=== PATIENT | female | born 1950 | race Caucasian/White ===

== ENCOUNTER 2025-02-03 20:43 | Emergency (ER) | payer MEDICARE, SELFPAY ==
[2025-02-03 20:50] VITALS: BP 188/66; PULSE 63; RESP 16; TEMP 36.6; O2SAT 97; BMI 25.0
--- NOTE | 2025-02-03 23:52 | CTR_ITS ---
PROCEDURE INFORMATION: Exam: CT Chest Without Contrast; Diagnostic Exam date and time: 02/04/2025 12:03 AM Age: 74 years old Clinical indication: Injury or trauma; Fall; Generalized; Blunt trauma (contusions or hematomas); Prior surgery; Surgery date: 6+ months; Surgery type: Open heart. Patient unable to specify procedure. Patient slipped on wet ground while walking dog and fell backwards onto ground. C/O upper back pain with RT scapular and RT posterior rib pain. ; Additional info: Fall, left scapula/rib pain TECHNIQUE: Imaging protocol: Diagnostic computed tomography of the chest without contrast. Radiation optimization: All CT scans at this facility use at least one of these dose optimization techniques: automated exposure control; mA and/or kV adjustment per patient size (includes targeted exams where dose is matched to clinical indication); or iterative reconstruction. COMPARISON: CR XR chest 1V [id number] 07/07/2018 7:04 AM RADIATION DOSE METRICS: Total DLP (mGy-cm): 1577.82 FINDINGS: Lungs: Mild bilateral lung scarring/atelectasis. No focal infiltrate or consolidation. Pleural spaces: Unremarkable. No pneumothorax. No pleural effusion. Heart: Heart normal in size. Severe calcified coronary artery atherosclerosis. No pericardial effusion. Lymph nodes: No mediastinal or hilar adenopathy. No axillary adenopathy. Vasculature: Moderate to severe atherosclerotic calcification of the thoracic aorta. Negative for aneurysm. Bones/joints: Acute compression fracture of the T3 vertebral body with moderate loss of central and anterior body height. Negative for retropulsion. Age-indeterminate compression fracture of the T5 vertebral body with moderate to severe loss of central and anterior body height. Exaggeration of the normal thoracic kyphosis. Prior sternotomy. Soft tissues: Unremarkable. PROCEDURE INFORMATION: Exam: CT Abdomen And Pelvis Without Contrast Exam date and time: 02/04/2025 12:03 AM Age: 74 years old Clinical indication: Injury or trauma; Fall; Generalized; Blunt trauma (contusions or hematomas); Prior surgery; Surgery date: 6+ months; Surgery type: Open heart. Patient unable to specify procedure. Patient slipped on wet ground while walking dog and fell backwards onto ground. C/O upper back pain with RT scapular and RT posterior rib pain. ; Additional info: Fall, left scapula/rib pain TECHNIQUE: Imaging protocol: Computed tomography of the abdomen and pelvis without contrast. Radiation optimization: All CT scans at this facility use at least one of these dose optimization techniques: automated exposure control; mA and/or kV adjustment per patient size (includes targeted exams where dose is matched to clinical indication); or iterative reconstruction. COMPARISON: CR XR chest 1V [id number] 07/07/2018 7:04 AM RADIATION DOSE METRICS: Total DLP (mGy-cm): 1577.82 FINDINGS: Liver: Normal. No mass. Gallbladder and biliary ducts: Normal. No calcified stones. No ductal dilation. Pancreas: Normal. No ductal dilation. Spleen: Normal. No splenomegaly. Adrenal glands: Normal. No mass. Kidneys and ureters: Bilateral renal cortical cysts, larger on right measuring 5.6 cm. Bilateral kidneys otherwise negative. Negative for hydronephrosis or urolithiasis. Stomach and bowel: Small and large bowel normal in caliber without identified wall thickening. Moderate sigmoid diverticulosis without findings of diverticulitis. Nonobstructive bowel gas pattern. Appendix: No evidence of appendicitis. Intraperitoneal space: Unremarkable. No free air. No significant fluid collection. Vasculature: Severe atherosclerotic calcification of the aorta and major branch vessels without aneurysm. Lymph nodes: Unremarkable. No enlarged lymph nodes. Urinary bladder: Unremarkable as visualized. Reproductive: Unremarkable as visualized. Bones/joints: Moderate lumbosacral spondylosis. Soft tissues: Unremarkable. CT/[place] [id number] IMPRESSION: 1. Acute compression fracture of the T3 vertebral body with moderate loss of central and anterior body height. Negative for retropulsion. 2. Age-indeterminate compression fracture of the T5 vertebral body with moderate to severe loss of central and anterior body height. Subjectively favored to be old. 3. No other acute pathology identified within the chest. IMPRESSION: No identified acute pathology within the abdomen or pelvis.
[2025-02-04 00:10] VITALS: RESP 17; O2SAT 96
[2025-02-04] MEDS: morphine 4 mg/mL SDV 1 mL 8 MG IM (00:10)
[2025-02-04] MEDS: ondansetron hcl ODT 4 mg Tab PO (02:26)
[2025-02-04 02:35] VITALS: BP 147/88; PULSE 81; RESP 18; O2SAT 96
--- NOTE | 2025-02-04 06:27 | W.ED.FALL ---
HPI - Fall General: Chief Complaint: Fall Stated Complaint: fall back, SOB Time Seen by Provider: 02/03/25 23:38 History of Present Illness: Patient presents after a fall while walking the dog, landing on the left scapular area. Reports pain localized to the left scapula, off to the side of the spine, and some difficulty breathing due to pain. Denies feeling like any ribs are broken at this time. No current nausea or vomiting. There is some uncertainty about whether the patient hit their head during the fall, as the patient initially denies but a caregiver suggests they may have. No mention of loss of consciousness. The patient describes the fall as occurring after slipping on a muddy rug while handling the dog. Related Data Previous Rx's ?Medication ?Instructions ?Recorded lisinopril 2.5 mg tablet 2.5 mg PO DAILY #90 tabs 12/06/19 metoprolol tartrate 25 mg tablet 12.5 mg (1/2 x 25 mg) PO BID #180 12/06/19 tabs rosuvastatin 20 mg tablet 20 mg PO DAILY #90 tabs 12/06/19 oxycodone-acetaminophen 5 mg-325 1 tab PO TID PRN pain #20 tabs 02/04/25 mg tablet (Percocet) Allergies Allergy/AdvReac Type Severity Reaction Status Date / Time Penicillins Allergy ALGY-Hives Verified 02/03/25 20:56 Physical Exam Const: COMMON NORMALS: no acute distress, patient oriented x3 and alert HENMT: COMMON NORMALS: normocephalic and atraumatic HEAD & SCALP: normocephalic and atraumatic Eye: COMMON NORMALS: Equal, round and reactive pupils present, EOMs intact bilaterally and no scleral icterus PUPIL: Yes Equal, round and reactive pupils present Resp: COMMON NORMALS: normal respiratory effort and No retractions Cardio: COMMON NORMALS: regular rate, regular rhythm and No murmurs present (Cardio) RATE: regular rate RHYTHM: regular rhythm GI: COMMON NORMALS: Normal to inspection, nondistended, normoactive bowel sounds present, Soft to palpation and non-tender PALPATION: Yes Soft to palpation Back/Pelvis: OTHER: Focal tenderness with palpation of the left scapula. No midline tenderness of the spine. Neuro: COMMON NORMALS: patient oriented x3 SENSORIUM/ORIENTATION: Yes alert Skin: COMMON NORMALS: no rashes or lesions noted GENERAL SKIN EXAM: no rashes or lesions noted Course Vital Signs: Vital signs: Vital Signs Temperature 97.8 F 02/03/25 20:50 Pulse Rate 81 02/04/25 02:35 Respiratory Rate 18 02/04/25 02:35 Blood Pressure 147/88 02/04/25 02:35 Pulse Oximetry 96 02/04/25 02:35 Oxygen Delivery Me thod Room Air 02/03/25 20:50 MDM - Fall Medical Decision Making In summary, patient is a generally well-appearing 74-year-old female seen for left scapular pain after falling. CT scan of the chest shows several chronic compression fractures. Radiology notes that T3 fracture may be acute. She does not have any point tenderness to with palpation of T3 nor any midline pain nor was her mechanism such that she would cause a compressive force on the spine thus I do not feel she would benefit from spinal bracing. She will be given a course of pain medication for what I suspect to be scapular contusion. She and family showed understanding and agrees to the plan and she will be discharged in stable condition Lab Data Radiology Impressions Chest/Abdomen/Pelvis CT 02/03/25 23:52 IMPRESSION: 1. Acute compression fracture of the T3 vertebral body with moderate loss of central and anterior body height. Negative for retropulsion. 2. Age-indeterminate compression fracture of the T5 vertebral body with moderate to severe loss of central and anterior body height. Subjectively favored to be old. 3. No other acute pathology identified within the chest. IMPRESSION: No identified acute pathology within the abdomen or pelvis. All radiology interpretation(s) finalized by discharge Discharge Plan Discharge Patient Disposition: Home Clinical Impression: Contusion of right back wall of thorax, initial encounter Condition: Stable Prescriptions: New oxycodone-acetaminophen [Percocet] 5-325 mg tablet 1 tab PO TID PRN (Reason: pain) Qty: 20 0RF No Action rosuvastatin 20 mg tablet 20 mg PO DAILY Qty: 90 0RF metoprolol tartrate 25 mg tablet 12.5 mg PO BID Qty: 180 0RF lisinopril 2.5 mg tablet 2.5 mg PO DAILY Qty: 90 0RF Discharge Orders: Discharge ED (Routine); Ordered 02/04/25 Ordered By: Dawson Lin Patient Instructions: Opioid Safety, Pain Management Activity Restrictions/Additional Instructions: The radiologist noted that there are multiple thoracic vertebral segments with compression fractures which appear chronic. The third thoracic segment looks like it could possibly be acutely fracture, however when I press on your back you do not have pain when I press on this thoracic area. Instead, you have pain over your scapula which I believe you bruised significantly. Fortunately, there is no fracture of the scapula. Please take the prescribed pain medicine and do everything you cannot to fall and reinjure yourself. This should get better with time Print Language: Wallisian Coding Level of Care Code ED [employer] T[employer] Helper for Jermaine Hay
--- NOTE | 2025-02-05 10:10 | DCPLANNER ---
messaged ortho for er f/u
== END 2025-02-04 02:36 | disposition home or self-care (01) ==
PROVIDERS: Emergency Provider Student in an Organized Health Care Education/Training Program
DX: S20.221A Contusion of right back wall of thorax, initial encounter (principal); W19.XXXA Unspecified fall, initial encounter
CPT/HCPCS: 71250; 74176; 96372; 99284; J2270; Q0162